=== PATIENT | male | born 1985 | race Caucasian/White ===

== ENCOUNTER 2019-09-21 13:36 | Emergency (ER) | payer OTHER ==
[~2019-09-21] VITALS: Ht 172.7 cm; Wt 80.7 kg
[2019-09-21 13:46] VITALS: BP 136/83; Ht 172.7 cm; Wt 80.7 kg
== END 2019-09-21 14:32 | disposition home or self-care (01) ==
LOC: ED 13:36
DX: R21 Rash and other nonspecific skin eruption (principal); R51 Headache